=== PATIENT | female | born 1985 | race Two or more races ===

== ENCOUNTER 2016-07-11 19:34 | Emergency (ER) | payer MEDICAID ==
[~2016-07-11] VITALS: Ht 170.2 cm; Wt 72.6 kg
[2016-07-11 19:35] VITALS: BP 124/73
[2016-07-12 02:41] LABS: Urine Bilirubin Negative (Negative); Urine Blood Negative /uL (Negative); Urine Color Yellow (Yellow); Urine Glucose Normal (Normal); Urine Granular Cast FEW /lpf (0); Urine Hyaline Cast FEW /lpf (0 - 2); Urine Ketone Negative (Negative); Urine Mucus FEW (None Seen); Urine Nitrite Negative (Negative); Urine RBC 3 /hpf (0 - 4); Urine Squamous Epithelial Cell FEW /hpf (<5); Urine pH 5.5 (5.0-8.0)
[2016-07-12 03:25] LABS: Basophils # (auto) 0.1 uL; Basophils % (auto) 0.9 % (0.0-2.0); DEFINITIVE VIEW TRANSMISSION; Eosinophils # (auto) 0.1 uL; Eosinophils % (auto) 0.8 % (0.0-7.0); Hematocrit 40.9 % (36.0-46.0); Hemoglobin 13.5 g/dL (12.2-16.2); Lymphocytes # (auto) 2.9 uL; Lymphocytes % (auto) 27.5 % (10.0-50.0); Mean Corpuscular Hemoglobin 26.9 pg (28.0-32.0); Mean Corpuscular Hgb Conc. 33.1 g/dL (32.0-36.0); Mean Corpuscular Volume 81.4 fL (80.0-100.0); Mean Platelet Volume 9.9 fL (7.4-10.4); Monocytes # (auto) 0.6 uL; Monocytes % (auto) 5.3 % (0.0-12.0); Neutrophils % (auto) 65.5 % (37.0-80.0); Platelet Count (auto) 336 10^3/uL (140-450); Red Cell Distribution Width 14.8 % (11.6-16.0); White Blood Cell 10.6 10^3/uL (4.4-10.8)
[2016-07-12 03:47] LABS: Albumin 4.1 g/dL (3.4-5.0); BUN/Creatinine Ratio 10.9; Potassium 3.5 mmol/L (3.5-5.1)
[2016-07-12 03:49] LABS: Bilirubin, Total 0.3 mg/dL (0.2-1.0); Total Protein 7.7 g/dL (6.4-8.2)
== END 2016-07-12 07:29 | disposition left against medical advice (07) ==
LOC: ER 19:34
DX: R51 Headache (principal); N39.0 Urinary tract infection, site not specified; Z59.0 Homelessness
CPT/HCPCS: 36415; 70450; 80053; 81001; 81025; 85025; 99285; G0434

== ENCOUNTER 2016-11-14 13:05 | Emergency (ER) | payer MEDICAID ==
[~2016-11-14] VITALS: Ht 170.2 cm; Wt 81.6 kg
[2016-11-14 13:16] VITALS: BP 104/71
== END 2016-11-14 15:03 | disposition home or self-care (01) ==
LOC: ER 13:07 → EDBD 13:07 → ER 15:03
DX: F31.9 Bipolar disorder, unspecified (principal); Z76.0 Encounter for issue of repeat prescription; F20.9 Schizophrenia, unspecified; Z59.0 Homelessness

== ENCOUNTER 2017-12-24 12:29 | Emergency (ER) | payer MEDICAID ==
[~2017-12-24] VITALS: Ht 167.6 cm; Wt 136.1 kg
[2017-12-24 12:43] VITALS: BP 132/88
== END 2017-12-24 16:18 | disposition home or self-care (01) ==
LOC: EDBD 12:29 → ER 12:40
DX: M25.512 Pain in left shoulder (principal); R21 Rash and other nonspecific skin eruption; F31.9 Bipolar disorder, unspecified; F20.9 Schizophrenia, unspecified; E66.01 Morbid (severe) obesity due to excess calories; Z68.42 Body mass index [BMI] 45.0-49.9, adult; Z59.0 Homelessness
CPT/HCPCS: 73030

== ENCOUNTER 2018-04-26 11:54 | Emergency (ER) | payer MEDICAID ==
[~2018-04-26] VITALS: Ht 172.7 cm; Wt 99.8 kg
[2018-04-26 13:00] VITALS: BP 141/87
[2018-04-26] MEDS ORDERED: METHOCARBAMOL 500 MG TAB PO ONE (14:45)
[2018-04-26] MEDS ORDERED: KETOROLAC TROMETH 60MG/2ML VIAL IM ONE (14:45)
== END 2018-04-26 15:36 | disposition home or self-care (01) ==
LOC: ER 11:54 → EDBD 11:54 → ER 15:33
DX: J02.9 Acute pharyngitis, unspecified (principal); M54.2 Cervicalgia
CPT/HCPCS: 72040; 96372; 99283; J1885

== ENCOUNTER 2022-10-21 23:13 | Emergency (ER) | payer MEDICAID ==
[~2022-10-21] VITALS: Ht 175.3 cm; Wt 127.3 kg
[2022-10-21 23:20] VITALS: TEMP 98.2
[2022-10-21 23:25] VITALS: BP 130/68; PULSE 76; RESP 18
[2022-10-22] MEDS ORDERED: IBUP-1456 PO (04:50)
[2022-10-22] MEDS ORDERED: KETOROLAC TROMETH 60MG/2ML VIAL IM ONE (05:00)
[2022-10-22] MEDS ORDERED: SULF800T23 PO (05:07)
[2022-10-22 06:29] VITALS: O2SAT 96
== END 2022-10-22 05:22 | disposition home or self-care (01) ==
LOC: ER 23:13 → EDBD 23:13 → ER 10-22 05:22
DX: S39.012A Strain of muscle, fascia and tendon of lower back, initial encounter (principal); X50.0XXA Overexertion from strenuous movement or load, initial encounter; Y93.89 Activity, other specified; Y92.89 Other specified places as the place of occurrence of the external cause; Y99.8 Other external cause status
CPT/HCPCS: 81002; 81025; 96372; 99283; J1885

== ENCOUNTER 2024-12-20 17:27 | Emergency (ER) | payer MEDICAID ==
[~2024-12-20] VITALS: Ht 177.8 cm; Wt 147.7 kg
[~2024-12-20 17:27] MED LIST: IBUP-1456 PO; SULF800T23 PO
--- NOTE | 2024-12-20 18:25 | ED.PDOC ---
Musculoskeletal HPI Comments 38-YEAR-OLD FEMALE PRESENTS TO ER WITH COMPLAINTS OF LEFT CALF PAIN X1 DAY. PATIENT REPORTS THAT HE STARTED EXPERIENCING UNPROVOKED 10/10 LEFT LOWER CALF PAIN YESTERDAY EVENING. DENIES USE OF MEDICATIONS FOR CURRENT SYMPTOMS AND PRESENTS TO ER AMBULATORY ON ARRIVAL, WITH STEADY GAIT, IN NO DISTRESS. DENIES FEVER, SKIN CHANGES, SHORTNESS OF BREATH, CHEST PAIN OR ANY FURTHER SYMPTOMS/COMPLAINTS Chief Complaint: Lower Extremity Time Seen by MD: 18:08 Primary Care Provider: NONE Reviewed Notes: Nurses Notes, Medications, Allergies Allergies: Coded Allergies: NO KNOWN ALLERGIES (Unverified , 11/30/15) Home Meds Active Scripts Acetaminophen (Acetaminophen) 500 Mg Tab, 500 MG PO Q4HPRN, #30 TAB 0 Refills Prov:MACRINA MANCILLA 12/20/24 Sulfamethoxazole W/Trimethopri (Trimethoprim/Sulfamethoxa) 1 Tab Tab, 1 TAB PO BID for 7 Days, #14 TAB 0 Refills Prov:MACRINA MANCILLA 10/22/22 Ibuprofen (Ibuprofen) 800 Mg Tab, 1 TAB PO TID PRN, #30 TAB 0 Refills Prov:MACRINA MANCILLA 10/22/22 Information Source: Patient Mode of Arrival: EMS Past Medical History PAST MEDICAL HISTORY: Depression, DM, Schizophrenia Surgical History: Denies all surgeries PROJECT MANAGER SENIOR History: No Pertinent PROJECT MANAGER SENIOR History Family History Family History: Unknown Social History Smoker: Non-Smoker Alcohol: Denies ETOH Use Drugs: Denies Drug Use Lives In: Home Constitutional: denies: chills, diaphoresis, fatigue, fever, malaise, sweats, weakness, others EENTM: denies: blurred vision, double vision, ear bleeding, ear discharge, ear drainage, ear pain, ear ringing, eye pain, eye redness, hearing loss, mouth pain, mouth swelling, nasal discharge, nose bleeding, nose congestion, nose pain, photophobia, tearing, throat pain, throat swelling, voice changes, others Respiratory: denies: cough, hemoptysis, orthopnea, SOB at rest, shortness of breath, SOB with excertion, stridor, wheezing, others Cardiovascular: denies: chest pain, dizzy spells, diaphoresis, Dyspnea on exertion, edema, irregular heart beat, left arm pain, lightheadedness, palpitations, PND, syncope, others Gastrointestinal: denies: abdomen distended, abdominal pain, blood streaked bowels, constipated, diarrhea, dysphagia, difficulty swallowing, hematemesis, melena, nausea, poor appetite, poor fluid intake, rectal bleeding, rectal pain, vomiting, others Genitourinary: denies: abnormal vagina bleeding, burning, dyspareunia, dysuria, flank pain, frequency, hematuria, incontinence, pain, , vagina discharge, urgency, others Neurological: denies: dizziness, fainting, headache, left sided numbness, left sided weakness, numbness, paresthesia, pre-existing deficit, right sided numbness, right sided weakness, seizure, speech problems, tingling, tremors, weakness, others Musculoskeletal: reports: others ( STATED IN HPI) Integumetry: denies: bruises, change in color, change in hair/nails, dryness, laceration, lesions, lumps, rash, wounds, others Allergic/Immunocompromised: denies: Difficulty Healing, Frequent Infections, Hives, Itching, others Hematologic/Lymphatic: denies: anemia, blood clots, easy bleeding, easy bruising, swollen glands, others Endocrine: denies: excessive hunger, excessive sweating, excessive thirst, excessive urination, flushing, intolerance to cold, intolerance to heat, unexplained weight gain, unexplained weight loss, others Psychiatric: denies: anxiety, bipolar disorder, depression, hopeless, panic disorder, schizophrenia, sleepless, suicidal, others Physical Exam General Appearance: No Apparent Distress, Obese HEENT: PERRL/EOMI Neck: Full Range of Motion, Non-Tender, Normal Respiratory: Chest Non-Tender, Lungs Clear, No Accessory Muscle Use, No Respiratory Distress, Normal Breath Sounds Cardiovascular: No Murmur, No Gallop, Regular Rate/Rhythm Breast Exam: Deferred Gastrointestinal: NOT DONE Genitalia: Deferred Pelvic: Deferred Rectal: Deferred Extremities: No calf tenderness (TTP TO LEFT MID CALF NOTED. NO SKIN CHANGES APPRECIATED. NO OTHER TTP TO LEFT LOWER EXTREMITY NOTED. PULSES INTACT. GAIT INTACT WITHOUT ABNORMALITY), Normal capillary refill, Normal range of motion, No pedal edema Neurologic: Alert, loan secretary II-XII nml as Tested, No Motor Deficits, Normal Affect, Normal Mood, No Sensory Deficits Cerebellar Function: Normal Reflexes: Normal Skin: Dry, Normal Color, Warm Peripheral Pulses: 2+ femoral (R), 2+ femoral (L), 2+ dorsalis pedis (R), 2+ dorsalis pedis (L), 2+ Radial (R), 2+ Radial (L), 2+ Brachial (R), 2+ Brachial (L) Lymphatic: No Adenopathy Was a procedure done? Was a procedure done?: No Sedation Sedation?: No Differential Diagnosis EXT Differential Diagnosis: Cellulitis, Deep Vein Thrombosis, Fracture, Neurovascular injury X-Ray, Labs, Meds, VS Vital Signs Date Time Temp Pulse Resp B/P (MAP) Pulse Ox O2 Delivery O2 Flow Rate FiO2 12/20/24 17:34 98.3 117 16 154/99 100 98.3 PATIENT: SALAS BRIANT: [id number]: [id number] : 03/14/1986 LOC: ER ROOM / BED: / AGE / SEX: 38 / F ADM STATUS: REG ER SERVICE 08 ORDERING PHYSICIAN: MACRINA MANCILLA PROCEDURE(s): LLDVT - LT Lower DVT REASON: left calf pain ORDER NUMBER(s): [id number], ACCESSION NUMBER(s): [id number] LEFT LOWER EXTREMITY VENOUS DUPLEX REASON FOR EXAMINATION: Left lower extremity pain and edema. COMPARISON: None TECHNIQUE: Using real-time freeze-frame technique with a high-frequency transducer, multiple longitudinal and transverse sections were obtained. Simultaneous color flow and spectral Doppler imaging was performed. FINDINGS: There is good visualization of the deep venous system with no intraluminal filling defects identified. Normal venous compressibility is seen and there is flow augmentation. Color flow Doppler imaging is unremarkable. IMPRESSION: NO EVIDENCE OF DEEP VENOUS THROMBOSIS. ATED BY: ABUNDIO DE JESUS MD DICTATED DATE/TIME: 12/20/241853 SIGNED BY: ABUNDIO DE JESUS MD SIGNED DATE/TIME: 12/20/241853 CC: LEFT LOWER DVT ULTRASOUND REVIEWED PATIENT NEUROVASCULARLY INTACT AND REPORTED IMPROVEMENT IN SYMPTOMS PRIOR TO DISCHARGE ADVISED TO FOLLOW UP WITH PCP IN 1-2 DAYS PATIENT VERBALIZED UNDERSTANDING AND AGREEABLE WITH CURRENT PLAN OF CARE ADVISED TO RETURN TO ER IMMEDIATELY IF SYMPTOMS WERE Images Reviewed?: Images reviewed and evaluated by me Time of 1ST Reevaluation: 18:25 Reevaluation 1ST: N/A Patient Education/Counseling: Diagnosis, Treatment, Prognosis, Need For Follow Up Family Education/Counseling: No Family Present Departure 1 Departure Time of Disposition: 18:42 Impression: Primary Impression: Muscle strain of left lower extremity Qualified Codes: S86.912A - Strain of unspecified muscle(s) and tendon(s) at lower leg level, left leg, initial encounter Disposition: HOME / SELF CARE / HOMELESS Condition: Stable e-Prescriptions Acetaminophen (Acetaminophen) 500 Mg Tab 500 MG PO Q4HPRN, #30 TAB 0 Refills Prov: MACRINA MANCILLA 12/20/24 Discharged With: Self Critical Care Note Critical Care Time?: No Stability Stability form required: No Heart Score Heart Score: Heart Score Response (Comments) Value History N/A 0 EKG N/A 0 Age N/A 0 Risk Factors N/A 0 Troponin N/A 0 Total 0 MACRINA MANCILLA Dec 20, 2024 18:25
[2024-12-20] MEDS ORDERED: ACET500T58 PO (18:49)
--- NOTE | 2024-12-20 18:56 | DVH ---
LEFT LOWER EXTREMITY VENOUS DUPLEX REASON FOR EXAMINATION: Left lower extremity pain and edema. COMPARISON: None TECHNIQUE: Using real-time freeze-frame technique with a high-frequency transducer, multiple longitu dinal and transverse sections were obtained. Simultaneous color flow and spectral Doppler imaging wa s performed. FINDINGS: There is good visualization of the deep venous system with no intraluminal filling defects identified. Normal venous compressibility is seen and there is flow augmentation. Color flow Doppler imaging is unremarkable. IMPRESSION: NO EVIDENCE OF DEEP VENOUS THROMBOSIS.
[2024-12-20 19:18] VITALS: RESP 19; O2SAT 99
[2024-12-20 19:21] VITALS: BP 118/75; PULSE 118; RESP 20; TEMP 98.6; O2SAT 96
== END 2024-12-20 19:24 | disposition home or self-care (01) ==
LOC: EDBD 17:27 → ER 17:27 → EDUNIT# 17:27 → ER 19:24
DX: S86.912A Strain of unspecified muscle(s) and tendon(s) at lower leg level, left leg, initial encounter (principal); F20.9 Schizophrenia, unspecified; E11.9 Type 2 diabetes mellitus without complications; Z79.899 Other long term (current) drug therapy; X58.XXXA Exposure to other specified factors, initial encounter; Y93.89 Activity, other specified; Y92.89 Other specified places as the place of occurrence of the external cause; Y99.8 Other external cause status
CPT/HCPCS: 93971